=== PATIENT | male | born 1980 | race Caucasian/White ===

== ENCOUNTER 2022-11-18 06:09 | Day surgery (SDC) | payer OTHER ==
[2022-11-09 15:55] VITALS: BMI 43.0
[2022-11-18] MEDS ORDERED: MIDAZOLAM HCL 2 MG/2 ML SINGLE DOSE VIAL ONE (07:02)
[2022-11-18] MEDS ORDERED: PROPOFOL 40 ML ONE (07:03)
[2022-11-18] MEDS ORDERED: PROPOFOL 20 ML ONE ×3 (07:04→09:16)
[2022-11-18] MEDS ORDERED: BUPIVACAINE HCL/PF 0.5% (5MG/ML) 10 ML VIAL ONE (07:09)
[2022-11-18] MEDS ORDERED: BUPIVACAINE LIPOSOME/PF (EXPAREL) 266 MG/20 ML VIAL ONE (07:09)
[2022-11-18] MEDS ORDERED: FENTANYL CITRATE/PF 50 MCG/ML VIAL ONE ×3 (07:20→10:03)
[2022-11-18] MEDS ORDERED: POLYMYXIN B SULFATE 500,000 UNIT VIAL ONE (07:32)
[2022-11-18] MEDS ORDERED: SUCCINYLCHOLINE CHLORIDE 200 MG/10 ML SYRINGE ONE (07:54)
[2022-11-18] MEDS ORDERED: ceFAZolin SODIUM 1 GM VIAL ONE (08:11)
[2022-11-18] MEDS ORDERED: TRANEXAMIC ACID 1000 MG/10 ML VIAL ONE (08:19)
[2022-11-18] MEDS ORDERED: BUPIVACAINE HCL/PF 0.25% (2.5MG/ML) 10 ML VIAL ONE (09:18)
[2022-11-18] MEDS ORDERED: oxyCODONE HCL 5 MG TABLET PO PRN ×3 (09:21→15:09)
[2022-11-18] MEDS ORDERED: ONDANSETRON 4 MG/2 ML VIAL IVPUSH PRN ×2 (09:21→15:09)
[2022-11-18] MEDS ORDERED: BUPIVACAINE HCL/PF 0.25% (2.5MG/ML) 10 ML VIAL IJ ONE (09:23)
[2022-11-18] MEDS ORDERED: ACETAMINOPHEN 1000 MG/100 ML BAG IVPB ONE (09:41)
[2022-11-18 10:11] VITALS: TEMP 97.9
[2022-11-18 10:32] VITALS: RESP 16
[2022-11-18] MEDS ORDERED: oxyCODONE HCL 5 MG TABLET ONE (10:39)
[2022-11-18 12:01] VITALS: BP 152/91; PULSE 86
[2022-11-18] MEDS ORDERED: ACETAMINOPHEN 325 MG TABLET (FP) PO PRN (15:09)
[2022-11-18] MEDS ORDERED: DOCUSATE SODIUM 100 MG CAPSULE (FP) PO PRN (15:09)
[2022-11-18] MEDS ORDERED: SIMETHICONE 80 MG TAB.CHEW (FP) PO PRN (15:09)
[2022-11-18] MEDS ORDERED: BISACODYL 5 MG TABLET.DR (FP) PO PRN (15:09)
[2022-11-18] MEDS ORDERED: CEFAZOLIN 1 GM/D5W 1 GM/50 ML BAG IVPB SCH (21:00)
[2022-11-19] MEDS ORDERED: ENOXAPARIN NA (PORCINE) 40 MG/0.4 ML DISP.SYRIN SQ SCH (10:00)
== END 2022-11-18 11:45 | disposition home or self-care (01) ==
LOC: FASU 06:09
PROVIDERS: ATTEND Orthopaedic Surgery
PROC: 0SBD4ZZ Excision of Left Knee Joint, Percutaneous Endoscopic Approach (ICD-10-PCS; 2022-11-18)
PROC: 0MQP4ZZ Repair Left Knee Bursa and Ligament, Percutaneous Endoscopic Approach (ICD-10-PCS; principal; 2022-11-18 08:21)
DX: S83.512A Sprain of anterior cruciate ligament of left knee, initial encounter (principal); S83.242A Other tear of medial meniscus, current injury, left knee, initial encounter; S83.282A Other tear of lateral meniscus, current injury, left knee, initial encounter; S83.8X2A Sprain of other specified parts of left knee, initial encounter; M65.862 Other synovitis and tenosynovitis, left lower leg; X58.XXXA Exposure to other specified factors, initial encounter; Y93.9 Activity, unspecified; Y92.9 Unspecified place or not applicable
CPT/HCPCS: 29879; 29880; 29888; C1713; 94760; C1776